=== PATIENT | male | born 1985 | race Hispanic/Latino ===

== ENCOUNTER 2021-03-01 04:08 | Emergency (ER) | payer SELFPAY ==
[~2021-03-01] VITALS: Ht 175.3 cm; Wt 129.3 kg
[~2021-03-01 04:08] MED LIST: IBUPROFEN800 MG PO; NORCO 5-325 TA1 EACH PO; ZOFRAN ODT8 MG SL
[2021-03-01] MEDS ORDERED: PROTONIX40 MG PO (05:26)
--- NOTE | 2021-03-01 08:20 | EKG ---
[facility] [address] [place], [place] [address] Signed Normal sinus rhythm Normal ECG No previous ECGs available Confirmed by SEAN TALAMANTES DO ([id number]) on 03/01/2021 8:20:34 AM Electronically Signed By: SEAN TALAMANTES DO 03/01/21 0820 PATIENT NAME: RIVERA CASTILLO Electrocardiogram DATE OF : 89 PHYSICIAN: SEAN TALAMANTES DO REPORT #: [id number] REPORT IS CONFIDENTIAL AND NOT TO BE RELEASED WITHOUT AUTHORIZATION
== END 2021-03-01 05:35 | disposition home or self-care (01) ==
LOC: ED 04:08
DX: K29.00 Acute gastritis without bleeding (principal)
CPT/HCPCS: 80053; 83690; 83735; 84484; 85025; 93005; 93010; 99285-25